=== PATIENT | female | born 1925 | race Caucasian/White ===

== ENCOUNTER 2017-05-03 10:25 | Emergency (ER) | payer OTHER, MEDICARE ==
--- NOTE | 2017-05-03 11:09 | EDPHY ---
H & P Time Seen by Provider: 05/03/17 10:50 HPI/ROS: CHIEF COMPLAINT: Head injury, confusion HISTORY OF PRESENT ILLNESS: 89-year-old female presents with confusion. 2 days ago, the patient is daughter noticed a lump on the back of the patient's head. The patient did not recall a fall, but it clearly seems that she had fallen. She was acting normally 2 days ago, but yesterday she seemed a little confused. She now feels more confused and is less steady on her feet than usual. No headache. Not on anticoagulants. REVIEW OF SYSTEMS: Constitutional: No fever, no chills Eyes: No visual changes ENT: No sore throat Respiratory: No cough, no shortness of breath Cardiac: No chest pain Gastrointestinal: no vomiting, no abdominal pain Genitourinary: no dysuria Musculoskeletal: No leg pain or swelling Skin: No rash Neurological: No headache Psychiatric: No depression Past Medical/Surgical History: Hypertension Hypothyroidism Small-bowel obstruction Social History: Lives in own home with daughter Smoking Status: Never smoked Physical Exam: General Appearance: Alert, pleasant Head: Swelling and tenderness leftside of occiput Eyes: Pupils equal and round, no conjunctival pallor or injection ENT, Mouth: Normal inspection, no tenderness, Mucous membranes moist Neck: Normal inspection, no midline tenderness, range of motion without pain Respiratory: Nontender chest wall, Lungs are clear to auscultation Cardiovascular: Regular rate and rhythm Gastrointestinal: Abdomen is soft and nontender Neurological: Alert, oriented x3, cranial nerves II through XII intact, motor 5 /5, sensory intact to light touch, gait is steady Skin: Warm and dry Extremities: Normal inspection, no tenderness Psychiatric: Mood and affect normal Constitutional: Initial Vital Signs Temperature (C) 36.9 C 05/03/17 10:36 Heart Rate 77 05/03/17 10:36 Respiratory Rate 16 05/03/17 10:36 Blood Pressure 138/67 H 05/03/17 10:36 O2 Sat (%) 97 05/03/17 10:36 O2 Delivery Mode Room Air Allergies/Adverse Reactions: No Known Allergies Allergy (Unverified 05/03/17 10:34) Home Medications: Medication Instructions Recorded Doxepin HCl 05/03/17 HCTZ (*) 05/03/17 Levothyroxine 05/03/17 Omeprazole 02/07/18 Verapamil 05/03/17 Medical Decision Making - Diagnostics EKG Interpretation: EKG interpreted by me reveals normal sinus rhythm, rate 70, no ST or T segment changes. Imaging Results: CT scan of the brain independently reviewed by me reveals sphenoid sinusitis, atrophy, microvascular disease. ED Course/Re-evaluation: This patient presents with confusion and difficulty walking after a probable head injury. It is concerning that she does not remember the head injury, as she does not usually have dementia. On exam her neurologic exam is normal and she ambulates with a steady gait. CT scan of the head reveals no evidence CVA or ICH. Laboratory analysis reveals hyponatremia. Review of her prior laboratory studies, this is a new finding for her. With a sodium of 124, this is most likely causing her confusion and difficulty walking. Likely secondary to HCTZ. Discussed with the patient and her daughter, I advised admission for further evaluation and treatment. At this point, they decline admission, as she has had difficulty being in the hospital in the past. She called her PCP, who will follow up in the office with her this afternoon. Differential Diagnosis: Altered mental status including but not limited to hypoglycemia, infectious process, electrolyte abnormality, head injury and intoxicants. - Data Points Laboratory Results: Laboratory Results 05/03/17 11:23 05/03/17 11:23 Departure - Departure Disposition: Home, Routine, Self-Care Clinical Impression: Hyponatremia Condition: Good Instructions: Hyponatremia (ED) Additional Instructions: I have advised you to be admitted for low sodium level. The low sodium is causing your confusion and difficulty walking. Please return for worsening symptoms or any concerns. Referrals: Deirdre Carbone MD [Primary Care Provider] - As per Instructions
[2017-05-03 11:42] LABS: PLATELET COUNT 301 10^3/uL (150-400)
--- NOTE | 2017-05-03 12:33 | CPEKG ---
Heart Rate: 70 RR Interval: 857 P-R Interval: 204 QRSD Interval: 94 QT Interval: 420 QTC Interval: 454 P Vaiden: 28 QRS Vaiden: -28 T Wave Vaiden: 31 EKG Severity - OTHERWISE NORMAL ECG - EKG Impression: SINUS RHYTHM EKG Impression: BORDERLINE LEFT AXIS DEVIATION Electronically Signed By: Tesha Powell 03-May-2017 15:18:35
[2017-05-03 13:37] VITALS: BP 139/73; PULSE 80; RESP 20; TEMP 97.7; O2SAT 96
== END 2017-05-03 13:48 | disposition home or self-care (01) ==
DX: E87.1 Hypo-osmolality and hyponatremia (principal); I10 Essential (primary) hypertension